=== PATIENT | female | born 1995 | race Caucasian/White ===

== ENCOUNTER 2018-03-04 16:47 | Emergency (ER) | payer BC ==
[2018-03-04 17:28] VITALS: BP 128/73
--- NOTE | 2018-03-04 18:02 | UC ---
FLU HPI - HPI Summary HPI Summary: Pt presents with c/o sudden onset fever, ST, body aches, chills, nasal congestion X 1 day. Pt is concerned about the flu. - History of Current Complaint Chief Complaint: UCGeneralIllness Stated Complaint: FEVER,BODY ACHES,SORE THROAT Time Seen by Provider: 03/04/18 17:24 Hx Obtained From: Patient Hx Last Menstrual Period: 02/10/18 ?: No Onset/Duration: Sudden Onset Severity Currently: Mild Severity Initially: Mild Pain Intensity: 4 Associated Signs & Symptoms: Positive: Fever, Myalgia, Sore Throat, Nasal Congestion, Headache Related Hx: Possible Flu/Infectious Exposure - Risk Factors Influenza Risk Factors: Negative - Allergy/Home Medications Allergies/Adverse Reactions: Allergies Allergy/AdvReac Type Severity Reaction Status Date / Time No Known Allergies Allergy Verified 07/19/14 21:49 Home Medications: Home Medications Etonogest/Eth.estradiol (Nf) [Nuvaring Vaginal Ring] 1 each VAGINAL DAILY [History Confirmed 03/04/18] Ibuprofen 600 mg PO ONCE 03/04/18 [History Confirmed 03/04/18] PMH/Surg Hx/FS Hx/Imm Hx Previously Healthy: Yes - Surgical History Surgical History: None - Family History Known Family History: Positive: Cardiac Disease - Social History Occupation: Employed Full-time Lives: With Family Alcohol Use: Rare Substance Use Type: None Smoking Status (MU): Never Smoked Tobacco - Immunization History Vaccination Up to Date: Yes Review of Systems All Other Systems Reviewed And Are Negative: Yes Constitutional: Positive: Fever, Chills, Fatigue Skin: Positive: Negative Eyes: Positive: Negative ENT: Positive: Sore Throat Respiratory: Positive: Negative Cardiovascular: Positive: Negative Gastrointestinal: Positive: Negative Genitourinary: Positive: Negative Motor: Positive: Negative Neurovascular: Positive: Negative Musculoskeletal: Positive: Myalgia Neurological: Positive: Headache Psychological: Positive: Negative Is Patient Immunocompromised?: No Physical Exam Triage Information Reviewed: Yes Appearance: Ill-Appearing Vital Signs: Initial Vital Signs Temp 99.9 F 03/04/18 17:25 Pulse 134 03/04/18 17:25 Resp 22 03/04/18 17:25 BP 128/73 03/04/18 17:25 Pulse Ox 100 03/04/18 17:25 Vital Signs Reviewed: Yes Eye Exam: Normal ENT Exam: Normal Dental Exam: Normal Neck exam: Normal Respiratory Exam: Normal Cardiovascular Exam: Normal Musculoskeletal Exam: Normal Neurological Exam: Normal Psychological Exam: Normal Skin Exam: Normal Flu Course/Dx - Differential Dx/Diagnosis Differential Diagnosis/HQI/PQRI: Influenza, Upper Respiratory Infection Provider Diagnosis: Viral syndrome Discharge - Sign-Out/Discharge Documenting (check all that apply): Patient Departure All imaging exams completed and their final reports reviewed: No Studies - Discharge Plan Condition: Stable Disposition: HOME Patient Education Materials: Viral Syndrome (ED) Referrals: Dory Jones MD [Primary Care Provider] - If Needed - Billing Disposition and Condition Condition: STABLE Disposition: Home
== END 2018-03-04 18:06 | disposition home or self-care (01) ==
LOC: UCCORT 16:47
DX: B34.9 Viral infection, unspecified (principal)
CPT/HCPCS: 99201; G0463

== ENCOUNTER 2018-07-30 16:47 | Emergency (ER) | payer BC ==
[2018-07-30 18:07] VITALS: BP 112/67
--- NOTE | 2018-07-30 18:25 | UC ---
UC General HPI - HPI Summary HPI Summary: SORE THROAT WITH HEADACHE AND NECK SORENESS SINCE THIS AM. 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 Last Menstrual Period: 07/07/18 Onset/Duration: Gradual Onset Timing: Constant Pain Intensity: 6 Aggravating: SWALLOWING Associated Signs & Symptoms: Negative: Fever - Allergy/Home Medications Allergies/Adverse Reactions: Allergies Allergy/AdvReac Type Severity Reaction Status Date / Time No Known Allergies Allergy Verified 07/30/18 18:08 PMH/Surg Hx/FS Hx/Imm Hx Psychological History: Anxiety - Surgical History Surgical History: None - Family History Known Family History: Positive: Cardiac Disease - Social History Lives: With Family Alcohol Use: Occasionally Substance Use Type: None Smoking Status (MU): Never Smoked Tobacco - Immunization History Vaccination Up to Date: Yes Review of Systems All Other Systems Reviewed And Are Negative: Yes Constitutional: Negative: Fever ENT: Positive: Sore Throat. Negative: Sinus Congestion Respiratory: Negative: Shortness Of Breath, Cough Musculoskeletal: Positive: Myalgia - NECK Neurological: Positive: Headache Physical Exam Triage Information Reviewed: Yes Appearance: Well-Appearing Vital Signs: Initial Vital Signs Temp 98.6 F 07/30/18 18:02 Pulse 82 07/30/18 18:02 Resp 18 07/30/18 18:02 BP 112/67 07/30/18 18:02 Pulse Ox 99 07/30/18 18:02 Vital Signs Reviewed: Yes Eyes: Positive: Conjunctiva Clear ENT: Positive: Pharyngeal erythema - WITH MILD SWELLING, TMs normal, Uvula midline. Negative: Nasal congestion, Nasal drainage, Trismus, Muffled voice, Hoarse voice Neck: Positive: Supple, Nontender, Enlarged Nodes @ - PERITONSILAR. Negative: Nuchal Rigidity Respiratory: Positive: Lungs clear, Normal breath sounds, No respiratory distress Cardiovascular: Positive: RRR, No Murmur Abdomen Description: Positive: Nontender Musculoskeletal: Positive: ROM Intact Neurological: Positive: Alert Psychological: Positive: Age Appropriate Behavior Skin Exam: Normal Skin: Negative: Rashes Diagnostics - Laboratory Lab Results: RAPID STREP=NEGATIVE Course/Dx - Differential Dx - Multi-Symptom Differential Diagnoses: Other - NON TOXIC. NO CONCERN FOR PERITOSILAR OR REYROPHARYNGEAL ABSCESS. NO NUCHAL RIGIDITY. ANTIBIOTIC NOT INDICATED - Diagnoses Provider Diagnosis: Pharyngitis Discharge - Sign-Out/Discharge Documenting (check all that apply): Patient Departure All imaging exams completed and their final reports reviewed: No Studies - Discharge Plan Condition: Stable Disposition: HOME Patient Education Materials: Pharyngitis (ED) Referrals: Dory Jones MD [Primary Care Provider] - Additional Instructions: follow up primary care if not better in 5 days or sooner if worse. - Billing Disposition and Condition Condition: STABLE Disposition: Home
== END 2018-07-30 18:41 | disposition home or self-care (01) ==
LOC: UCCORT 16:47
DX: J02.9 Acute pharyngitis, unspecified (principal)
CPT/HCPCS: 87651; 99211; G0463